=== PATIENT | male | born 2000 | race Caucasian/White ===

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

== ENCOUNTER 2018-06-19 15:38 | Emergency (ER) | payer BC ==
[2018-06-19 15:54] VITALS: BP 119/60
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
== END 2018-06-19 16:35 | disposition home or self-care (01) ==
DX: S83.91XA Sprain of unspecified site of right knee, initial encounter (principal); S53.401A Unspecified sprain of right elbow, initial encounter; S93.602A Unspecified sprain of left foot, initial encounter; V29.9XXA Motorcycle rider (driver) (passenger) injured in unspecified traffic accident, initial encounter; Y92.410 Unspecified street and highway as the place of occurrence of the external cause; F17.200 Nicotine dependence, unspecified, uncomplicated

== ENCOUNTER 2018-11-16 18:23 | Emergency (ER) | payer BC ==
--- NOTE | 2018-11-16 19:43 | EDPHY ---
HPI/HX/ROS/PE/MDM Narrative: CHIEF COMPLAINT: Syncope, sore throat. Recent hematemesis and hemoptysis. HISTORY OF PRESENT ILLNESS: This patient is a generally healthy 17 year old male who presents following a syncopal episode earlier today. He initially felt unwell two weeks ago with sore throat, headache, congestion, cough, subjective fever. One week ago, he noted blood-tinged sputum with his cough. Around that same time he developed vomiting and diarrhea and endorses some hematemesis and hematochezia. These episodes were infrequent and resolved about three days ago. He continues to have a sore throat. Today, he was at the [employer] store and began feeling lightheaded and had a syncopal event. He denies any trauma. He returned home and had a second syncopal event and presents for evaluation. He endorses headache and a sensation of imbalance. No fever, chills, chest pain, shortness of breath, palpitations, urinary complaints. Reports excessive alcohol last night. The patient notes he accidentally swallowed a pushpin two days ago. He has not had any blood in his stool and has not vomited blood since this incident. REVIEW OF SYSTEMS: A comprehensive 10 system review of systems is otherwise negative aside from elements mentioned in the history of present illness and medical decision making. PAST MEDICAL HISTORY: Appendectomy. Orthopedic surgeries. SOCIAL HISTORY: Student at [employer]. Occasional marijuana and alcohol use. No illicit drug use. VITAL SIGNS: Reviewed by me GENERAL: Well-developed, well-nourished, resting comfortably in no respiratory distress. HEENT: Atraumatic. Eyes: No icterus, no injection. Mouth: moist mucous membranes. Slight erythema but no exudates. Neck: supple with no adenopathy. LUNGS: Clear to auscultation bilaterally, no wheezes, rhonchi or rales. CARDIAC: Regular rate and rhythm, no rubs, murmurs or gallops. ABDOMEN: Soft, nontender, nondistended, bowel sounds normal. BACK: No CVA tenderness. EXTREMITIES: No trauma. No edema. Range of motion is normal throughout. NEURO: Alert and oriented, grossly nonfocal. SKIN: Warm and dry, no rash. PSYCHIATRIC: Normal mentation, no agitation. Portions of this note were transcribed by a medical professionals. I personally performed a history, physical exam, medical decision making, and confirmed accuracy of information the transcribed note. ED Course: 17 y/o male presents following an episode of syncope earlier today as well as sore throat and other URI symptoms ongoing for two weeks. Exam is largely unremarkable. Plan for EKG, chest x-ray, labs including CBC, chemistries, strep swab, flu swab, troponin. Plan to administer 30mg IV Toradol and 1L IV NS for symptom relief. 12-LEAD EKG: Please see the full report in [employer] [facility]. My interpretation: Normal sinus rhythm Chest x-ray is negative for acute processes. Discussed abdominal xray given history of swallowing a pushpin. Patient denies abdominal complaints currently , prior episode of hemetemesis was in setting of coughing, no further vomiting over past few days and benign abdomen. Patient would prefer NOT to have abdominal imaging done. Rapid strep screen is positive. Reviewed remaining laboratory studies. These are largely unremarkable. Troponin negative. Reassessed patient. Discussed imaging and laboratory studies. Plan to discharge home in good condition. Prescription for azithromycin provided. First dose will be administered here in the ED. Follow up and return precautions discussed. The patient is comfortable with this plan. MDM: Diff dx considered included but not limited to viral pharyngitis, bacterial pharyngitis, mononucleosis, peritonsillar abscess, pneumonia, bronchitis, ralph martinez tear, vasovagal syncope, dehydration. - Data Points Imaging Results: CXR: Impression: Normal. No pneumonia. Dictated By: Jonathan Shine MD Imaging: I viewed and interpreted images myself Laboratory Results: Laboratory Results 11/16/18 20:00 11/16/18 20:00 Medications Given: Discontinued Medications Azithromycin (Zithromax) 500 mg PO EDNOW ONE PRN Reason: Protocol Stop: 11/16/18 20:36 Last Admin: 11/16/18 20:40 Dose: 500 mg Sodium Chloride (Ns) 1,000 mls @ 0 mls/hr IV ONCE ONE; Wide Open PRN Reason: Protocol Stop: 11/16/18 19:45 Last Admin: 11/16/18 20:03 Dose: 1,000 mls Ketorolac Tromethamine (Toradol) 30 mg IVP EDNOW ONE Stop: 11/16/18 19:46 Last Admin: 11/16/18 20:03 Dose: 30 mg General Time Seen by Provider: 11/16/18 19:28 Initial Vital Signs: Initial Vital Signs Temperature (C) 37 C 11/16/18 18:28 Heart Rate 80 11/16/18 18:28 Respiratory Rate 18 11/16/18 18:28 Blood Pressure 120/58 L 11/16/18 18:28 O2 Sat (%) 98 11/16/18 18:28 O2 Delivery Mode Room Air Allergies/Adverse Reactions: No Known Allergies Allergy (Verified 11/16/18 18:27) Home Medications: Medication Instructions Recorded Azithromycin [Zithromax] 250 mg PO DAILY #4 tab 11/16/18 Departure - Departure Disposition: Home, Routine, Self-Care Clinical Impression: Acute bronchitis, Strep pharyngitis Condition: Good Instructions: Strep Throat (ED), Acute Bronchitis (ED) Additional Instructions: Your rapid strep screen is positive Please take antibiotics as directed. This will also cover any pulmonary infection which is resulting coughing up blood. For your sore throat, I suggest ibuprofen 400-600 mg every 6-8 hours to help with pain and swelling. Salt water gargles and throat lozengers will also be helpful. If you have nasal congestion, I suggest Flonase which is available over the counter as well as an oral decongestant such as Sudafed. For runny nose, I suggest an antihistamine. Claritin or Kina are nonsedating antihistamines. Please drink plenty of fluid. Small frequent sips will be best. Avoid alcohol and caffeinated fluids. Please follow up with your primary care physician if you're not improving as expected. Referrals: NONE *PRIMARY CARE P,. [Primary Care Provider] - As per Instructions Mayuri Freire MD [[facility] Primary Care Provider] - As per Instructions Prescriptions: Azithromycin [Zithromax] 250 mg PO DAILY #4 tab Report Scribed for: Latonia Islas Report Scribed by: Oriana Freed Date of Report: 11/16/18 Time of Report: 21:16
[2018-11-16] MEDS ORDERED: NS 1,000 ML IV ONE (19:44)
[2018-11-16] MEDS ORDERED: KETOROLAC 30 MG/1 ML SDV IVP ONE (19:45)
[2018-11-16 20:13] LABS: PLATELET COUNT 262 10^3/uL (150-400)
[2018-11-16] MEDS ORDERED: AZITHROMYCIN 250 MG TAB PO ONE (20:35)
[2018-11-16 20:44] VITALS: BP 126/69
--- NOTE | 2018-11-17 00:57 | CPEKG ---
Test Reason : OPEN Blood Pressure : / mmHG Vent. Rate : 065 BPM Atrial Rate : 066 BPM P-R Int : 164 ms QRS Dur : 104 ms QT Int : 369 ms P-R-T Axes : 057 086 050 degrees QTc Int : [address] elev, probable normal early repol pattern Confirmed by Latonia Islas ([id number]) on 11/17/2018 12:57:14 AM Referred By: Latonia Islas Confirmed By:Latonia Islas
== END 2018-11-16 20:44 | disposition home or self-care (01) ==
DX: J20.9 Acute bronchitis, unspecified (principal); J02.0 Streptococcal pharyngitis
CPT/HCPCS: 96374; J1885